=== PATIENT | female | born 1940 | race Caucasian/White ===

== ENCOUNTER → 2016-11-04 | Outpatient (CLI) | payer OTHER | LOC: ECHO 10-20 12:30 → HEART 5 10:43 | DX: R00.2 Palpitations (principal) | CPT/HCPCS: 93306 ==

== ENCOUNTER 2020-08-13 19:12 | Emergency (ER) | payer OTHER ==
[2020-08-13 20:11] LABS: HEMOGLOBIN 13.4 gm/dl (12.3-15.3); RED BLOOD COUNT 4.59 M/UL (4.00-5.10); WHITE BLOOD COUNT 8.9 K/UL (4.5-11.0)
== END 2020-08-13 21:34 | disposition home or self-care (01) ==
LOC: ER1 19:12
PROVIDERS: Preventive Medicine Occupational Medicine
DX: G44.209 Tension-type headache, unspecified, not intractable (principal); I10 Essential (primary) hypertension
CPT/HCPCS: 80053; 85025; 86140; 96374; 96375; 99284; J1170; J1200; J2405; J2550; J7030

== ENCOUNTER → 2020-08-13 | Outpatient (CLI) | payer OTHER ==
[~2020-08-13] MED LIST: DYAZIDE 37.5/251 EA PO; ELIQUIS 5 MG TAB5 MG PO; HYDROCHLOROTHIA25 MG PO; LOPRESSOR50 MG PO; PRINIVIL5 MG PO; ZOCOR20 MG PO
== END ==
LOC: CT 15:00
DX: M79.604 Pain in right leg (principal); R51.9 Headache, unspecified
CPT/HCPCS: 70450

== ENCOUNTER 2021-05-27 15:56 | Emergency (ER) | payer OTHER ==
[2021-05-27 16:29] LABS: HEMOGLOBIN 13.3 gm/dl (12.3-15.3); RED BLOOD COUNT 4.54 M/UL (4.00-5.10); WHITE BLOOD COUNT 8.5 K/UL (4.5-11.0)
[2021-05-27 17:02] LABS: BUN/CREATININE RATIO 24 (0-10)
== END 2021-05-27 17:55 | disposition home or self-care (01) ==
LOC: ER1 15:56
PROVIDERS: Preventive Medicine Occupational Medicine
DX: I48.20 Chronic atrial fibrillation, unspecified (principal); I10 Essential (primary) hypertension; E11.9 Type 2 diabetes mellitus without complications; Z20.822 Contact with and (suspected) exposure to COVID-19
CPT/HCPCS: 71045; 80048; 82550; 82553; 83874; 84484; 85025; 93005; 96374; 99285; U0002

== ENCOUNTER → 2021-08-04 | Outpatient (CLI) | payer OTHER | LOC: HEART 5 15:11 | DX: I48.91 Unspecified atrial fibrillation (principal); R06.02 Shortness of breath; I08.3 Combined rheumatic disorders of mitral, aortic and tricuspid valves | CPT/HCPCS: 93306 ==

== ENCOUNTER → 2022-01-31 | Outpatient (CLI) | payer OTHER | LOC: KOH-I 10:27 | DX: M25.561 Pain in right knee (principal); M17.11 Unilateral primary osteoarthritis, right knee | CPT/HCPCS: 73562 ==